=== PATIENT | male | born 1995 | race Caucasian/White ===

== ENCOUNTER → 2017-06-01 | Outpatient (CLI) | payer OTHER ==
[2017-06-01 08:44] LABS: BASO % 0.5 % (0.0-1.0); EOS # 0.2 K/mm3 (0.0-0.50); EOS % 3.3 % (0.0-3.0); LARGE UNSTAINED CELL # 0.2 K/mm3 (0.0-0.4); LARGE UNSTAINED CELL % 2.2 % (0.0-4.0); LYMPH # 1.9 K/mm3 (1.5-6.5); MEAN CORPUSCULAR HEMOGLOBIN 29.9 pg (27.0-33.0); MEAN CORPUSCULAR VOLUME 90.7 fl (80.0-96.0); MONO # 0.5 K/mm3 (0.0-0.8); MONO % 6.8 % (0.0-5.0); NEUTROPHILS # 4.2 K/mm3 (1.8-7.7); NEUTROPHILS % 61.1 % (36.0-66.0); PLATELET COUNT, AUTOMATED 248 k/mm3 (150-450); RED CELL DISTRIBUTION WIDTH 13.6 % (11.5-14.5); WHITE BLOOD COUNT 6.9 K/mm3 (4.0-10.0)
[2017-06-01 09:33] LABS: ALBUMIN 3.9 GM/DL (3.2-5.2); ALBUMIN/GLOBULIN RATIO 1.22 (1.00-1.93); ALKALINE PHOSPHATASE 116 U/L (45-117); ALT/SGPT 45 U/L (12-78); ANION GAP 7 MEQ/L (8-16); AST/SGOT 18 U/L (15-37); BILIRUBIN,TOTAL 0.3 MG/DL (0.2-1.0); BLOOD UREA NITROGEN 14 MG/DL (7-18); CARBON DIOXIDE LEVEL 30 MEQ/L (21-32); CHLORIDE LEVEL 107 MEQ/L (98-107); CREATININE FOR GFR 0.89 MG/DL (0.70-1.30); GLOMERULAR FILTRATION RATE > 60.0 (>60); GLUCOSE, FASTING 93 MG/DL (70-105); POTASSIUM SERUM 4.4 MEQ/L (3.5-5.1); SODIUM LEVEL 144 MEQ/L (136-145); TOTAL PROTEIN 7.1 GM/DL (6.4-8.2)
== END ==
LOC: M LAB 08:06
PROVIDERS: ATTEND Nurse Practitioner Family
DX: Z00.00 Encounter for general adult medical examination without abnormal findings (principal)

== ENCOUNTER → 2017-06-07 | Outpatient (REF) | payer OTHER | LOC: EEVIPCON 16:45 → M LAB REF 16:45 | PROVIDERS: ATTEND Physician Assistant Medical | DX: S41.109A Unspecified open wound of unspecified upper arm, initial encounter (principal); W18.30XA Fall on same level, unspecified, initial encounter; Y92.009 Unspecified place in unspecified non-institutional (private) residence as the place of occurrence of the external cause ==

== ENCOUNTER → 2017-07-08 | Outpatient (CLI) | payer OTHER | LOC: M LAB 13:14 | PROVIDERS: ATTEND Nurse Practitioner Adult Health | DX: B00.9 Herpesviral infection, unspecified (principal) ==

== ENCOUNTER → 2025-03-13 | Outpatient (CLI) | payer MEDICAID | LOC: M OUTALCOH 12:04 | PROVIDERS: ATTEND Psychiatry & Neurology Psychiatry | DX: F15.20 Other stimulant dependence, uncomplicated (principal); F10.10 Alcohol abuse, uncomplicated; F12.20 Cannabis dependence, uncomplicated; F17.200 Nicotine dependence, unspecified, uncomplicated ==